=== PATIENT | female | born 1990 | race Caucasian/White ===

== ENCOUNTER 2020-11-02 09:53 | Day surgery (SDC) | payer OTHER, SELFPAY ==
[2020-11-02] MEDS ORDERED: MIDAZOLAM 5 MG/5 ML VIAL ONE (12:37)
[2020-11-02] MEDS ORDERED: diphenhydrAMINE 50 MG/ML VIAL ONE (12:37)
[2020-11-02] MEDS ORDERED: LIDOCAINE 2% 100 MG/5 ML UJET TP ONE ×2 (12:37→13:25)
[2020-11-02] MEDS ORDERED: fentaNYL citrate 0.05 MG/ML VIAL ONE (12:37)
[2020-11-02] MEDS ORDERED: MIDAZOLAM 2 MG/2 ML VIAL IVP ONE (13:25)
[2020-11-02] MEDS ORDERED: fentaNYL citrate 0.05 MG/ML VIAL IVP ONE (13:25)
== END 2020-11-02 13:37 | disposition home or self-care (01) ==
LOC: MDS 09:53 → MMU 10:37 → MDS 13:37
PROVIDERS: ATTEND Internal Medicine Gastroenterology
DX: K62.5 Hemorrhage of anus and rectum (principal); K52.9 Noninfective gastroenteritis and colitis, unspecified; Z20.828 Contact with and (suspected) exposure to other viral communicable diseases
CPT/HCPCS: 45380; 81025; J2250; J3010; U0003; J1200